=== PATIENT | female | born 1985 | race African-American/Black ===

== ENCOUNTER 2017-04-04 23:18 | Emergency (ER) | payer BC, OTHER ==
[2017-04-04 23:34] VITALS: BP 109/75; PULSE 74; TEMP 98.5; BMI 27.3
== END 2017-04-05 00:16 | disposition left against medical advice (07) ==
LOC: JER 23:18
DX: Z53.21 Procedure and treatment not carried out due to patient leaving prior to being seen by health care provider (principal)
CPT/HCPCS: 99281-25

== ENCOUNTER 2017-04-05 17:52 | Emergency (ER) | payer OTHER ==
[2017-04-05 17:56] VITALS: BMI 29.7
[2017-04-05] MEDS ORDERED: ACETAMINOPHEN 325 MG TABLET (FP) PO ONE (18:21)
--- NOTE | 2017-04-05 18:23 | PDOC ---
History of Present Illness - General History Source: Patient Exam Limitations: No Limitations - History of Present Illness Initial Comments: 04/05/17 18:38 The patient is a year old female with a significant PMH of recurrent lower back pain who presents to the emergency department with left leg heaviness and pain beginning approximately The patient notes that she saw her PCP Dr. Isauro Palomo today who sent her over to rule out DVT in her left leg. The patient denies chest pain, shortness of breath, headache and dizziness. Denies fever, chills, nausea, vomit, diarrhea and constipation. Denies dysuria, frequency, urgency and hematuria. Allergies: NKA Past surgical history: Scoliosis surgery w/ fusion. Social history: Social alcohol use. No reported cigarette or drug use. PCP: Dr. Isauro Palomo <Estrada Sanches - Last Filed: 04/05/17 18:40> - General History Source: Patient Exam Limitations: No Limitations <Estrada Gray - Last Filed: 04/05/17 18:54> <Charlene Taveras - Last Filed: 04/05/17 20:45> - General Chief Complaint: Pain Stated Complaint: PAIN Time Seen by Provider: 04/05/17 18:14 Past History <Estrada Sanches - Last Filed: 04/05/17 18:40> - Past Medical History COPD: No Diabetes: No HTN: No Hypercholesterolemia: No Psychiatric Problems: Yes (anxiety) - Surgical History Orthopedic Surgery: Yes (scoliosis surgery with fusion) - Reproductive History (#): 1 - Suicide/Smoking/Psychosocial Hx Smoking Status: No Smoking History: Never smoked Have you smoked in the past 12 months: No Number of Cigarettes Smoked Daily: 0 Hx Alcohol Use: Yes (SOCIAL) Drug/Substance Use Hx: No Substance Use Type: None <Estrada Gray - Last Filed: 04/05/17 18:54> <Charlene Taveras - Last Filed: 04/05/17 20:45> - Past Medical History Allergies/Adverse Reactions: Allergies Allergy/AdvReac Type Severity Reaction Status Date / Time No Known Allergies Allergy Verified 04/05/17 17:56 Home Medications: Ambulatory Orders Nitrofurantoin Macrocrystal [Nitrofurantoin] 100 mg PO BID #14 capsule 04/05/17 Nitrofurantoin Monohyd/M-Cryst [Macrobid -] 100 mg PO BID #14 capsule 04/05/17 Review of Systems - Review of Systems Able to Perform ROS?: Yes Comments:: 04/05/17 18:38 GENERAL/CONSTITUTIONAL: No fever or chills. No weakness. HEAD, EYES, EARS, NOSE AND THROAT: No change in vision. No ear pain or discharge. No sore throat. CARDIOVASCULAR: No chest pain or shortness of breath. RESPIRATORY: No cough, wheezing, or hemoptysis. GASTROINTESTINAL: No nausea, vomiting, diarrhea or constipation. GENITOURINARY: No dysuria, frequency, or change in urination. MUSCULOSKELETAL: (+) Left leg heaviness and pain. No neck or back pain. SKIN: No rash NEUROLOGIC: No headache, vertigo, loss of consciousness, or change in strength/ sensation. ENDOCRINE: No increased thirst. No abnormal weight change. HEMATOLOGIC/LYMPHATIC: No anemia, easy bleeding, or history of blood clots. ALLERGIC/IMMUNOLOGIC: No hives or skin allergy. <Estrada Sanches - Last Filed: 04/05/17 18:40> *Physical Exam - Vital Signs Last Vital Signs Temp Pulse Resp BP Pulse Ox 98.3 F 71 20 125/67 100 04/05/17 17:53 04/05/17 17:53 04/05/17 17:53 04/05/17 17:53 04/05/17 17:53 - Physical Exam Comments: 04/05/17 18:38 GENERAL: Awake, alert, and fully oriented, in no acute distress HEAD: No signs of trauma EYES: PERRLA, EOMI, sclera anicteric, conjunctiva clear ENT: Auricles normal inspection, hearing grossly normal, nares patent, oropharynx clear without exudates. Moist mucosa NECK: Normal ROM, supple, no lymphadenopathy, JVD, or masses EXTREMITIES: (+) Mild tenderness to left anterior medial thigh. Normal range of motion, no edema. No clubbing or cyanosis. No cords, erythema, or tenderness NEUROLOGICAL: Cranial nerves II through XII grossly intact. Normal speech, normal gait <Estrada Sanches - Last Filed: 04/05/17 18:40> - Vital Signs Last Vital Signs Temp Pulse Resp BP Pulse Ox 98.3 F 71 20 125/67 100 04/05/17 17:53 04/05/17 17:53 04/05/17 17:53 04/05/17 17:53 04/05/17 17:53 <Estrada Gray - Last Filed: 04/05/17 18:54> - Vital Signs Last Vital Signs Temp Pulse Resp BP Pulse Ox 98.3 F 71 20 125/67 100 04/05/17 17:53 04/05/17 17:53 04/05/17 17:53 04/05/17 17:53 04/05/17 17:53 <Charlene Taveras - Last Filed: 04/05/17 20:45> ED Treatment Course - RADIOLOGY Radiology Studies Ordered: Category Date Time Status DUPLEX VASCUL US-1 LEG [US] Stat Ultrasound 04/05/17 18:21 Ordered <Estrada Gray - Last Filed: 04/05/17 18:54> - Medications Given in the ED: ED Medications Discontinued Medications Generic Name Dose Route Start Last Admin Trade Name Freq PRN Reason Stop Dose Admin Acetaminophen 650 mg 04/05/17 18:21 04/05/17 19:46 Tylenol - PO 04/05/17 18:22 650 mg ONCE ONE Administration <Charlene Taveras - Last Filed: 04/05/17 20:45> Medical Decision Making - Medical Decision Making 04/05/17 18:36 A portion of this note was documented by scribe services under my direction. I have reviewed the details of the note, within reason, and agree with the documentation with the following case summary and management plan written by me. Patient treated in the ED. Nursing notes are reviewed and incorporated into the medical decision-making. Vital signs reviewed. Vital Signs Temp Pulse Resp BP Pulse Ox 98.3 F 71 20 125/67 100 04/05/17 17:53 04/05/17 17:53 04/05/17 17:53 04/05/17 17:53 04/05/17 17:53 31-year-old female with no past medical history presents with left leg pain. The patient reports that she's taken oral contraceptive pills. Noted yesterday that that today she was developing heaviness and left thigh pain. Denies chest pain or shortness of breath. Patient called her doctor who then sent the patient ED to rule out DVT. Patient is also endorsing one week of dysuria but denies any fevers or abdominal pain. We'll rule out DVT with a duplex. However, we'll also need to investigate UA for rule out urinary tract infection. 04/05/17 18:54 Patient signed out to Dr. Taveras for further management and disposition. <Estrada Gray - Last Filed: 04/05/17 18:54> - Medical Decision Making 04/05/17 19:50 Patient Name: YAS PADGETT THIS IS A PRELIMINARY REPORT FROM [facility] DATE OF SERVICE: 2017-04-05 19:10:41 IMAGES: 21 EXAM: Venous Doppler imaging of the left lower extremity HISTORY: Left lower extremity pain COMPARISON: None. FINDINGS: Spectral color flow Doppler imaging of the venous system of the left lower extremity is negative for deep venous thrombosis. IMPRESSION: Negative study 04/05/17 20:45 UA shows UTI; I will terat with 7 days of macrobid <Charlene Taveras - Last Filed: 04/05/17 20:45> *DC/Admit/Observation/Transfer - Attestations Scribe Attestion: 04/05/17 18:38 Documentation prepared by Estrada Sanches, acting as medical accountant for Estrada Gray MD. <Estrada Sanches - Last Filed: 04/05/17 18:40> <Estrada Gray - Last Filed: 04/05/17 18:54> - Discharge Dispostion Admit: No <Charlene Taveras - Last Filed: 04/05/17 20:45> Diagnosis at time of Disposition: UTI (urinary tract infection) - Discharge Dispostion Disposition: HOME Condition at time of disposition: Stable - Prescriptions Prescriptions: Nitrofurantoin Macrocrystal [Nitrofurantoin] 100 mg PO BID #14 capsule Nitrofurantoin Monohyd/M-Cryst [Macrobid -] 100 mg PO BID #14 capsule - Referrals Referrals: Isauro Palomo MD [Primary Care Provider] - - Patient Instructions Printed Discharge Instructions: Urinary Tract Infection - Post Discharge Activity
[2017-04-05] MEDS ORDERED: ACETAMINOPHEN 325 MG TABLET (FP) ONE (19:47)
[2017-04-05 20:01] LABS: HCG,QUALITATIVE URINE NEGATIVE; URINE APPEARANCE TURBID; URINE BILIRUBIN NEGATIVE (NEGATIVE); URINE BLOOD 2+ (NEGATIVE); URINE COLOR YELLOW; URINE GLUCOSE (UA) NEGATIVE (NEGATIVE); URINE KETONE NEGATIVE (NEGATIVE); URINE NITRITE POSITIVE (NEGATIVE); URINE UROBILINOGEN NEGATIVE mg/dL (0.2-1.0)
[2017-04-05 20:02] LABS: URINE LEUK ESTERASE 1+ (NEGATIVE); URINE PROTEIN 1+ (NEGATIVE)
[2017-04-05 20:06] LABS: EPI CELLS RARE /HPF (FEW); TRIPLE PHOSPHATE CRYSTAL FEW /hpf (NONE SEEN); URINE BACTERIA FEW /hpf (NONE SEEN); URINE MUCUS MODERATE
[2017-04-05] MEDS ORDERED: NITROFURANTOIN MACROCRYSTAL 50 MG CAPSULE (FP) PO SCH (20:15)
[2017-04-05] MEDS ORDERED: NITROFURANTOIN MACROCRYSTAL 50 MG CAPSULE (FP) ONE (20:25)
[2017-04-05 20:32] VITALS: BP 120/62; PULSE 68; TEMP 98.1
== END 2017-04-05 20:15 | disposition home or self-care (01) ==
LOC: JER 17:52
DX: N39.0 Urinary tract infection, site not specified (principal)
CPT/HCPCS: 81003; 81015; 84703; 87086; 87186; 93971-TC; 99281-25

== ENCOUNTER 2017-08-26 17:15 | Emergency (ER) | payer OTHER ==
[2017-08-26 17:23] VITALS: BP 127/72; PULSE 75; TEMP 98.7; BMI 29.4
--- NOTE | 2017-08-26 17:28 | PDOC ---
Rapid Medical Evaluation Time Seen by Provider: 08/26/17 17:19 Medical Evaluation: Allergies Allergy/AdvReac Type Severity Reaction Status Date / Time No Known Allergies Allergy Verified 04/05/17 17:56 08/26/17 17:20 Dizziness, shortness of breath and chest pain for two days. Hx of panic attacks. Exam: AAOx3, breathing easily. CTAB Orders. EKG, CBC, CMP, CXR, trop Pt. to proceed to ED for further evaluation
--- NOTE | 2017-08-26 18:04 | PDOC ---
History of Present Illness - General Chief Complaint: Chest Pain Stated Complaint: S.O.B/ CHEST PAIN Time Seen by Provider: 08/26/17 17:19 - History of Present Illness Initial Comments: 08/26/17 18:01 32 yo F with h/o anxiety disorder who p/w SOB. Patient with acute episode of SOB ( 20 minutes) while in grocery store this evening. Also reports episode of lightheadedness, and chest "discomfort/pressure." Reports similar episode yesterday evening after getting out of shower, but associated with L hand tingling, with spontaneous resolution. No identifiable triggers or alleviators. States that symptoms are different from previous panic attacks. Denies F/C, N/V, wheezing, diaphoresis, palpitations, orthopnea, PND, leg swelling/pain, cough, hemoptysis, abdominal pain, diarrhea, constipation, urinary complaints, weakness. PMHx: as noted above. Denies h/o ACS/AK, stent placement, holter monitor testing , or stress testing. Denies h/o PE/DVT, surgery or trauma within 6 weeks, or h/ o malignancy. Started on OCP within past week. FHx: Denies h/o sudden cardiac . ROS: as noted above SHx: Denies tobacco, or IVDA. Intermittent Etoh. Denies recent travel or prolonged immobilization. Past History - Past Medical History Allergies/Adverse Reactions: Allergies Allergy/AdvReac Type Severity Reaction Status Date / Time No Known Allergies Allergy Verified 04/05/17 17:56 Home Medications: Ambulatory Orders Norethindrone AC-Eth Estradiol [Junel] 1 each PO DAILY 08/26/17 COPD: No Diabetes: No HTN: No Hypercholesterolemia: No Psychiatric Problems: Yes (anxiety) - Surgical History Orthopedic Surgery: Yes (scoliosis surgery with fusion) - Reproductive History (#): 1 - Suicide/Smoking/Psychosocial Hx Smoking Status: No Smoking History: Never smoked Have you smoked in the past 12 months: No Number of Cigarettes Smoked Daily: 0 Information on smoking cessation initiated: No Hx Alcohol Use: No Drug/Substance Use Hx: No Substance Use Type: None Review of Systems - Review of Systems Comments:: 08/26/17 18:01 GENERAL/CONSTITUTIONAL: No fever or chills. No weakness. HEAD, EYES, EARS, NOSE AND THROAT: No change in vision. No ear pain or discharge. No sore throat. CARDIOVASCULAR: + chest pain and shortness of breath RESPIRATORY: +SOB. No cough, wheezing, or hemoptysis. GASTROINTESTINAL: No nausea, vomiting, diarrhea or constipation. GENITOURINARY: No dysuria, frequency, or change in urination. MUSCULOSKELETAL: No joint or muscle swelling or pain. No neck or back pain. SKIN: No rash NEUROLOGIC: No headache, vertigo, loss of consciousness, or change in strength/ sensation. ENDOCRINE: No increased thirst. No abnormal weight change HEMATOLOGIC/LYMPHATIC: No anemia, easy bleeding, or history of blood clots. ALLERGIC/IMMUNOLOGIC: No hives or skin allergy. *Physical Exam - Vital Signs Last Vital Signs Temp Pulse Resp BP Pulse Ox 98.7 F 75 17 127/72 100 08/26/17 17:20 08/26/17 17:20 08/26/17 17:20 08/26/17 17:20 08/26/17 17:20 - Physical Exam Comments: 08/26/17 18:01 GENERAL: Awake, alert, and fully oriented, in no acute distress HEAD: No signs of trauma, normocephalic, atraumatic EYES: PERRLA, EOMI, sclera anicteric, conjunctiva clear ENT: Hearing grossly normal, nares patent, oropharynx clear without exudates. Moist mucosa NECK: Normal ROM, supple, no lymphadenopathy, JVD, or masses LUNGS: No distress, speaks full sentences, clear to auscultation bilaterally HEART: Regular rate and rhythm, normal S1 and S2, no murmurs, rubs or gallops, peripheral pulses normal and equal bilaterally. EXTREMITIES : Normal inspection, Normal range of motion, no edema. No clubbing or cyanosis. NEUROLOGICAL: Cranial nerves II through XII grossly intact. Normal speech, normal gait, no focal sensorimotor deficits SKIN: Warm, Dry, normal turgor, no rashes or lesions noted Moderate Sedation - Procedure Monitoring Vital Signs: Vital Signs Temp Pulse Resp BP Pulse Ox 98.7 F 75 17 127/72 100 08/26/17 17:20 08/26/17 17:20 08/26/17 17:20 08/26/17 17:20 08/26/17 17:20 ED Treatment Course - LABORATORY CBC & Chemistry Diagram: 08/26/17 17:49 08/26/17 17:49 - ADDITIONAL ORDERS Additional order review: 08/26/17 17:49 RBC 4.51 MCV 86.2 MCHC 31.7 L RDW 14.5 MPV 9.5 Neutrophils % 54.2 Lymphocytes % 34.8 D Monocytes % 5.7 Eosinophils % 5.1 H D Basophils % 0.2 Medical Decision Making - Medical Decision Making 08/26/17 18:02 32 yo F with h/o anxiety disorder who p/w acute SOB, chest pressure, and lightheadedness. VSS, AF. PERC POS for OCP use. Low risk Weils criteria for PE. R/o cardiac dysarrythmia vs. cardiac dz. Will assess for anemia, electrolyte abnml, toxic or metabolic derangements,acid-base disturbances, or underlying infection. Will also consider anxiety or somatiform related disorder, thyroid dysfunction. ED Course: CBC,CMP, BHCG, PT/INR, Cardiac, TSH EKG, CXR 08/26/17 18:36 EKG: NSR with absent REBEKA, STD, or TWI. Nml interval duration and axis. CBC,CMP: Unremarkable UA: Neg stable for d/c with return precautions. Advised to f/u with PMD. *DC/Admit/Observation/Transfer Diagnosis at time of Disposition: Shortness of breath Chest pain Qualifiers: Chest pain type: unspecified Qualified Code(s): R07.9 - Chest pain, unspecified - Discharge Dispostion Disposition: HOME Condition at time of disposition: Stable Decision to Admit order: No - Referrals Referrals: Carter Cottrell MD [Staff Physician] - - Patient Instructions Printed Discharge Instructions: DI for Chest Pain Additional Instructions: Please follow up with your primary care physician in 2-3 days. Please return to the ER if you have any signs or symptoms of chest pain, shortness of breath, uncontrollable fever, chills, nausea, vomiting, numbness, tingling, or weakness in any part of your body, changes in vision, or slurred speech. Please return to the ER if symptoms persist, worsen, or new symptoms arise. - Post Discharge Activity - Attestations Physician Attestion: 08/26/17 18:02 I attest to the information provided in this note.
--- NOTE | 2017-08-26 18:26 | PDOC ---
Attending Attestation - Resident Resident Name: Mehdi Medina - ED Attending Attestation I have performed the following: I have examined & evaluated the patient, The case was reviewed & discussed with the resident, I agree w/resident's findings & plan, Exceptions are as noted - HPI HPI: 08/26/17 18:25 32y F hx of anxiety presents with complaint of sob, associated with lightheaded ness and tingling in her left hand started last night while getitng out of the shower, lasting approx 30min-1hr. pt endorsed recurrent symptoms while she was at the grocery store that has since resolved. no associated chest pain, hemoptysis, headache, vision cahnges, abd pain, dysuria, diarrhea, back pain. Pt currently asymptomatic. pt notes hx of panic attacks but notes she usually doesnt feel lightheaded. pts exam unremarkable with clear lungs, cardiac exam rrr, abd soft nontender recently started on ocp, but sypmtoms highly atypical of PE, low risk wells suspect anxiety will obtain blood work to r/o anemia,metabolic derangement ekg to screen for arrythmia - Physicial Exam PE: 08/29/17 09:20 see above - Medical Decision Making pt awaiting lab work, signed out to evening team to fu with lab work and anticipate dc with pmd fu Heart Score/ECG Review - ECG Impressions Comment:: 08/26/17 18:45 Twelve-lead EKG was performed and reviewed by me. There is normal sinus rhythm with a normal rate. Rate of 78 The axis is normal. The intervals are normal. There is normal R wave progression There are no ST or T wave abnormalities. Impression: Normal twelve-lead EKG
[2017-08-26 19:03] LABS: INR 1.11 (0.82-1.09); PROTHROMBIN TIME (PATIENT) 12.5 SEC (9.7-13.0)
[2017-08-26 19:12] LABS: URINE APPEARANCE SLCLOUDY; URINE BILIRUBIN NEGATIVE (<2.0 mg/dL); URINE COLOR STRAW; URINE GLUCOSE (UA) NEGATIVE (NEGATIVE); URINE KETONE NEGATIVE (NEGATIVE); URINE LEUK ESTERASE NEGATIVE (NEGATIVE); URINE NITRITE NEGATIVE (NEGATIVE); URINE PROTEIN NEGATIVE (NEGATIVE); URINE UROBILINOGEN NEGATIVE mg/dL (0.2-1.0)
[2017-08-26 19:16] LABS: HCG,QUALITATIVE URINE NEGATIVE
[2017-08-26 19:19] LABS: ALBUMIN 3.8 g/dl (3.4-5.0); ALK PHOS 48 U/L (45-117); ANION GAP 9 (8-16); BILIRUBIN,TOTAL 0.2 mg/dL (0.2-1.0); BLOOD UREA NITROGEN 8 mg/dL (7-18); CALCIUM 8.5 mg/dL (8.5-10.1); CHLORIDE 105 mmol/L (98-107); CO2 26 mmol/L (21-32); CREATININE 0.6 mg/dL (0.55-1.02); GLUCOSE,RANDOM 102 mg/dL (74-106); POTASSIUM 3.9 mmol/L (3.5-5.1); SGOT/AST 18 U/L (15-37); SGPT/ALT 17 U/L (12-78); SODIUM 140 mmol/L (136-145); TOT PROT 7.5 g/dl (6.4-8.2)
[2017-08-26 19:24] LABS: EPI CELLS FEW /HPF (FEW); URINE BACTERIA FEW /hpf (NONE SEEN)
--- NOTE | 2017-08-26 19:50 | PDOC ---
*Physical Exam - Vital Signs Last Vital Signs Temp Pulse Resp BP Pulse Ox 98.7 F 75 17 127/72 100 08/26/17 17:20 08/26/17 17:20 08/26/17 17:20 08/26/17 17:20 08/26/17 17:20 ED Treatment Course - LABORATORY CBC & Chemistry Diagram: 08/26/17 17:49 08/26/17 17:49 - ADDITIONAL ORDERS Additional order review: Laboratory Results 08/26/17 08/26/17 08/26/17 18:21 17:54 17:49 PT with INR INR Sodium 140 Potassium 3.9 Chloride 105 Carbon Dioxide 26 Anion Gap 9 BUN 8 Creatinine 0.6 Creat Clearance w eGFR > 60 Random Glucose 102 Calcium 8.5 Total Bilirubin 0.2 D AST 18 ALT 17 Alkaline Phosphatase 48 Total Protein 7.5 Albumin 3.8 TSH 0.74 Urine Color Straw Urine Appearance Slcloudy Urine pH 7.0 Ur Specific [place] 1.004 Urine Protein Negative Urine Glucose (UA) Negative Urine Ketones Negative Urine Blood 1+ H Urine Nitrite Negative Urine Bilirubin Negative Urine Urobilinogen Negative Ur Leukocyte Esterase Negative Urine WBC (Auto) 5 Urine RBC (Auto) 1 Ur Epithelial Cells Few Urine Bacteria Few Urine HCG, Qual Negative 08/26/17 17:49 PT with INR 12.50 INR 1.11 Sodium Potassium Chloride Carbon Dioxide Anion Gap BUN Creatinine Creat Clearance w eGFR Random Glucose Calcium Total Bilirubin AST ALT Alkaline Phosphatase Total Protein Albumin TSH Urine Color Urine Appearance Urine pH Ur Specific [place] Urine Protein Urine Glucose (UA) Urine Ketones Urine Blood Urine Nitrite Urine Bilirubin Urine Urobilinogen Ur Leukocyte Esterase Urine WBC (Auto) Urine RBC (Auto) Ur Epithelial Cells Urine Bacteria Urine HCG, Qual Medical Decision Making - Medical Decision Making 08/26/17 19:49 The patient was signed out to me by Dr. Medina, day team. The patient is a 32F with no PMH presenting with lightheadedness. EKG and labs WNL. Pending CXR. Likely dispo: home with PCP f/u. 08/26/17 19:53 CXR clear, pending CBC and d/c home. 08/26/17 20:26 XR negative. CBC negative. Will d/c home with PCP f/u. *DC/Admit/Observation/Transfer Diagnosis at time of Disposition: Shortness of breath Chest pain Qualifiers: Chest pain type: unspecified Qualified Code(s): R07.9 - Chest pain, unspecified - Discharge Dispostion Disposition: HOME Condition at time of disposition: Stable Decision to Admit order: No - Referrals Referrals: Carter Cottrell MD [Staff Physician] - - Patient Instructions Printed Discharge Instructions: DI for Chest Pain Additional Instructions: Please follow up with your primary care physician in 2-3 days. Please return to the ER if you have any signs or symptoms of chest pain, shortness of breath, uncontrollable fever, chills, nausea, vomiting, numbness, tingling, or weakness in any part of your body, changes in vision, or slurred speech. Please return to the ER if symptoms persist, worsen, or new symptoms arise. - Post Discharge Activity
[2017-08-26 19:53] LABS: BASO % 0.2 % (0-2.0); EOS % 5.1 % (0-4.5); HEMATOCRIT 38.9 % (32.4-45.2); HEMOGLOBIN 12.3 GM/dL (10.7-15.3); LYMPH % 34.8 % (8-40); MCH 27.3 pg (25.7-33.7); MCHC 31.7 g/dl (32.0-36.0); MEAN CELL VOLUME 86.2 fl (80-96); MEAN PLT VOLUME 9.5 fl (7.5-11.1); MONO % 5.7 % (3.8-10.2); NEUT % 54.2 % (42.8-82.8); PLATELET COUNT 233 K/MM3 (134-434); RBC 4.51 M/mm3 (3.60-5.2); RDW 14.5 % (11.6-15.6); WHITE BLOOD COUNT 5.2 K/mm3 (4.0-10.0)
--- NOTE | 2017-08-27 10:27 | EKG ---
Test Reason : Blood Pressure : / mmHG Vent. Rate : 078 BPM Atrial Rate : 078 BPM P-R Int : 146 ms QRS Dur : 094 ms QT Int : 396 ms P-R-T Axes : 034 054 049 degrees QTc Int : 451 ms NORMAL SINUS RHYTHM NORMAL ECG WHEN COMPARED WITH ECG OF 22-SEP-2015 05:31, NONSPECIFIC T WAVE ABNORMALITY, WORSE IN ANTERIOR LEADS Confirmed by FRANCO YEBOAH, CHIQUITA ([id number]) on 08/27/2017 10:26:59 AM Referred By: Confirmed By:CHIQUITA GAMEZ MD
== END 2017-08-26 20:44 | disposition home or self-care (01) ==
LOC: JER 17:15
DX: R07.89 Other chest pain (principal); R06.02 Shortness of breath; F41.9 Anxiety disorder, unspecified
CPT/HCPCS: 36415; 71046-TC-FY; 80053; 81003; 81015; 82550; 82553; 84443; 84484; 84703; 85025; 85610; 93005; 93010; 99283-25

== ENCOUNTER 2018-10-29 11:12 | Emergency (ER) | payer OTHER ==
[2018-10-29 11:31] VITALS: TEMP 98.5; BMI 29.0
[2018-10-29 12:10] VITALS: BP 110/72; PULSE 84
--- NOTE | 2018-10-29 13:03 | PDOC ---
History of Present Illness - General Chief Complaint: Lightheaded Stated Complaint: Lightheaded Time Seen by Provider: 10/29/18 12:25 History Source: Patient Exam Limitations: No Limitations Past History - Past Medical History Allergies/Adverse Reactions: Allergies Allergy/AdvReac Type Severity Reaction Status Date / Time No Known Allergies Allergy Verified 04/05/17 17:56 Home Medications: Ambulatory Orders Norethindrone AC-Eth Estradiol [Junel] 1 each PO DAILY 08/26/17 COPD: No Diabetes: No HTN: No Hypercholesterolemia: No Psychiatric Problems: Yes (anxiety) - Surgical History Orthopedic Surgery: Yes (scoliosis surgery with fusion) - Reproductive History (#): 1 - Immunization History Immunization Up to Date: No - Suicide/Smoking/Psychosocial Hx Smoking Status: No Smoking History: Never smoked Have you smoked in the past 12 months: No Number of Cigarettes Smoked Daily: 0 Information on smoking cessation initiated: No Hx Alcohol Use: No Drug/Substance Use Hx: No Substance Use Type: None *Physical Exam - Vital Signs Last Vital Signs Temp Pulse Resp BP Pulse Ox 98.5 F 85 18 135/54 L 100 10/29/18 11:29 10/29/18 11:29 10/29/18 11:29 10/29/18 11:29 10/29/18 11:29 - Physical Exam General Appearance: No: Apparent Distress HEENT: positive: EOMI, RAMIRO Respiratory/Chest: positive: Lungs Clear, Normal Breath Sounds. negative: Respiratory Distress Cardiovascular: positive: Regular Rhythm, Regular Rate, S1, S2. negative: Murmur Gastrointestinal/Abdominal: positive: Normal Bowel Sounds, Soft. 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 Denies having this problem in the past. Denies fever, URI sxs, sob, cp, abd pain, vomiting, urinary complaints, headache , changes in vision/gait, numbness/tingling, weakness of extremities. LNMP October 07. Consider anemia, electrolyte abnormalities, possible Plan: Labs, UCG 10/29/18 13:00 Labs unremarkable Patient not Patient given copy of lab results advised f/u PCP 10/29/18 13:55 *DC/Admit/Observation/Transfer Diagnosis at time of Disposition: Lightheaded - Discharge Dispostion Disposition: HOME Condition at time of disposition: Stable Decision to Admit order: No - Referrals Referrals: Lukasz Shabazz MD [Primary Care Provider] - 2 Days - Patient Instructions Printed Discharge Instructions: DI for Dizziness-Nonvertigo Additional Instructions: Thank you for choosing [facility]. It was a pleasure taking care of you. Your blood work was unremarkable here Please follow-up with your regular doctor in 2 days for further evaluation Return to the Emergency Department if your symptoms worsen or persist, you have fever, shortness of breath, chest pain, severe abdominal pain, vomiting, weakness of extremities (arms and/or legs), changes in vision or walking or other concerning symptoms. - Post Discharge Activity
[2018-10-29 13:11] LABS: BASO % 0.1 % (0-2.0); EOS % 3.2 % (0-4.5); HEMATOCRIT 37.9 % (32.4-45.2); HEMOGLOBIN 12.3 GM/dL (10.7-15.3); LYMPH % 27.3 % (8-40); MCH 27.4 pg (25.7-33.7); MCHC 32.3 g/dl (32.0-36.0); MEAN CELL VOLUME 84.8 fl (80-96); MEAN PLT VOLUME 9.1 fl (7.5-11.1); MONO % 4.2 % (3.8-10.2); NEUT % 65.2 % (42.8-82.8); PLATELET COUNT 217 K/MM3 (134-434); RBC 4.47 M/mm3 (3.60-5.2); RDW 14.3 % (11.6-15.6); WHITE BLOOD COUNT 5.4 K/mm3 (4.0-10.0)
[2018-10-29 13:42] LABS: ALBUMIN 3.7 g/dl (3.4-5.0); BILIRUBIN,TOTAL 0.4 mg/dL (0.2-1); BLOOD UREA NITROGEN 8.8 mg/dL (7-18); CALCIUM 9.3 mg/dL (8.5-10.1); CREATININE 0.7 mg/dL (0.55-1.3); POTASSIUM 3.9 mmol/L (3.5-5.1); TOT PROT 7.4 g/dl (6.4-8.2)
== END 2018-10-29 14:18 | disposition home or self-care (01) ==
LOC: JER 11:12
DX: R42 Dizziness and giddiness (principal)
CPT/HCPCS: 36415; 80053; 84703; 85025; 99282-25

== ENCOUNTER 2019-03-26 10:55 | Emergency (ER) | payer OTHER ==
[2019-03-26 11:03] VITALS: BP 113/74; PULSE 88; BMI 28.1
--- NOTE | 2019-03-26 11:42 | PDOC ---
History of Present Illness - General Chief Complaint: Palpitations Stated Complaint: Palpitations Time Seen by Provider: 03/26/19 11:20 - History of Present Illness Initial Comments: 03/26/19 11:28 33 F with no PMH presents to ED with intermittent palpitations. Pt states that for several weeks, she has been having episodes of chest "fluttering". She feels like her heart is racing or skipping beats. These episodes last only a few minutes at a time and resolve spontaneously. Pt denies ever having CP/SOB. Denies lightheadedness/syncope. Pt states that she sometimes gets these episodes after drinking alcohol but knows of no other trigger. Currently denies any symptoms. Denies leg swelling. Past History - Past Medical History Allergies/Adverse Reactions: Allergies Allergy/AdvReac Type Severity Reaction Status Date / Time No Known Allergies Allergy Verified 03/26/19 11:01 Home Medications: Ambulatory Orders Norethindrone AC-Eth Estradiol [Junel] 1 each PO DAILY 08/26/17 COPD: No Diabetes: No HTN: No Hypercholesterolemia: No Psychiatric Problems: Yes (anxiety) - Surgical History Orthopedic Surgery: Yes (scoliosis surgery with fusion) - Reproductive History (#): 1 - Immunization History Immunization Up to Date: No - Psycho Social/Smoking Cessation Hx Smoking Status: No Smoking History: Never smoked Have you smoked in the past 12 months: No Number of Cigarettes Smoked Daily: 0 Hx Alcohol Use: No Drug/Substance Use Hx: No Substance Use Type: None Review of Systems - Review of Systems Comments:: 03/26/19 11:42 "GENERAL/CONSTITUTIONAL: No fever or chills. No weakness. HEAD, EYES, EARS, NOSE AND THROAT: No change in vision. No ear pain or discharge. No sore throat. CARDIOVASCULAR: + palpitations, No chest pain, no shortness of breath, no loss of consciousness RESPIRATORY: No cough, wheezing, or hemoptysis. GASTROINTESTINAL: No nausea, vomiting, diarrhea or constipation. GENITOURINARY: No dysuria, frequency, or change in urination. MUSCULOSKELETAL: No joint or muscle swelling or pain. No neck or back pain. SKIN: No rash NEUROLOGIC: No vertigo, no change in strength/sensation. ENDOCRINE: No increased thirst. No abnormal weight change. HEMATOLOGIC/LYMPHATIC: No anemia, easy bleeding, or history of blood clots. ALLERGIC/IMMUNOLOGIC: No hives or skin allergy. *Physical Exam - Vital Signs Last Vital Signs Temp Pulse Resp BP Pulse Ox 88 18 113/74 100 03/26/19 11:01 03/26/19 11:01 03/26/19 11:01 03/26/19 11:01 - Physical Exam 03/26/19 11:42 "GENERAL: Awake, alert, and fully oriented, in no acute distress. HEAD: No signs of trauma EYES: PERRLA, EOMI, sclera anicteric, conjunctiva clear ENT: Auricles normal inspection, hearing grossly normal, nares patent, oropharynx clear without exudates. Moist mucosa NECK: Nontender, no stepoffs, Normal ROM, supple, no lymphadenopathy, JVD, or masses LUNGS: Breath sounds equal, clear to auscultation bilaterally. No wheezes, and no crackles HEART: Regular rate and rhythm, normal S1 and S2, no murmurs, rubs or gallops ABDOMEN: Soft, nontender, normoactive bowel sounds. No guarding, no rebound. No masses EXTREMITIES: Normal range of motion, no edema. No clubbing or cyanosis. No cords, erythema, or tenderness NEUROLOGICAL: Cranial nerves II through XII intact. 5/5 strength and sensation in all extremities, Normal speech, normal gait, normal cerebellar function SKIN: Warm, Dry, normal turgor, no rashes or lesions noted. Heart Score/ECG Review - ECG Impressions Comment:: 03/26/19 11:53 NSR, no REBEKA/STDs, no TWIs, axis wnl, intervals wnl, rate 88 ED Treatment Course - LABORATORY CBC & Chemistry Diagram: 03/26/19 11:35 03/26/19 11:35 Medical Decision Making - Medical Decision Making 03/26/19 11:55 33 F with intermittent palpitations x several weeks. Asymptomatic at time of ED eval. EKG wnl, normal sinus. Possible anxiety component. Will check labs and TSH. - Labs Labs wnl. Pt is well appearing, with normal vitals. Clinically stable for DC at this time. I discussed the physical exam findings, ancillary test results and final diagnoses with the patient. I answered all of the patient's questions. The patient was satisfied with the care received and felt comfortable with the discharge plan and treatment plan. The patient agrees to follow up with the primary care physician within 24-72 hours. Discharge - Discharge Information Problems reviewed: Yes Clinical Impression/Diagnosis: Palpitations Disposition: HOME - Follow up/Referral Referrals: Lukasz Shabazz MD [Primary Care Provider] - - Patient Discharge Instructions Patient Printed Discharge Instructions: DI for Palpitations Additional Instructions: Please follow up with your primary care doctor within 1 week for further evaluation of your palpitations. You may need something called a "holter monitor". Avoid caffeine or alcohol, as these may be triggers for your palpitations. If you experience persistent palpitations, chest pain, shortness of breath, lightheadedness, or any other concerning symptoms, return to the ER immediately. - Post Discharge Activity
[2019-03-26 12:07] LABS: BASO % 0.3 % (0-2.0); HEMATOCRIT 38.4 % (32.4-45.2); HEMOGLOBIN 12.2 GM/dL (10.7-15.3); LYMPH % 35.4 % (8-40); MCH 27.2 pg (25.7-33.7); MCHC 31.9 g/dl (32.0-36.0); MEAN CELL VOLUME 85.5 fl (80-96); MEAN PLT VOLUME 8.8 fl (7.5-11.1); MONO % 5.2 % (3.8-10.2); NEUT % 52.1 % (42.8-82.8); PLATELET COUNT 250 K/MM3 (134-434); RBC 4.49 M/mm3 (3.60-5.2); RDW 14.1 % (11.6-15.6); WHITE BLOOD COUNT 6.3 K/mm3 (4.0-10.0)
[2019-03-26 12:26] LABS: ALBUMIN 3.7 g/dl (3.4-5.0); ALK PHOS 45 U/L (45-117); ANION GAP 7 MMOL/L (8-16); BILIRUBIN,TOTAL 0.4 mg/dL (0.2-1); CALCIUM 9.4 mg/dL (8.5-10.1); CHLORIDE 107 mmol/L (98-107); CO2 26 mmol/L (21-32); CREATININE 0.8 mg/dL (0.55-1.3); GLUCOSE,RANDOM 71 mg/dL (74-106); POTASSIUM 4.2 mmol/L (3.5-5.1); SGOT/AST 15 U/L (15-37); SGPT/ALT 17 U/L (13-61); SODIUM 140 mmol/L (136-145); TOT PROT 7.6 g/dl (6.4-8.2)
--- NOTE | 2019-03-27 14:28 | EKG ---
Test Reason : Blood Pressure : / mmHG Vent. Rate : 088 BPM Atrial Rate : 088 BPM P-R Int : 132 ms QRS Dur : 088 ms QT Int : 380 ms P-R-T Axes : 034 045 029 degrees QTc Int : 459 ms NORMAL SINUS RHYTHM NORMAL ECG WHEN COMPARED WITH ECG OF 26-AUG-2017 17:24, NO SIGNIFICANT CHANGE WAS FOUND Confirmed by CHIP BAZAN MD ([id number]) on 03/27/2019 2:28:45 PM Referred By: Confirmed By:CHIP BAZAN MD
== END 2019-03-26 13:11 | disposition home or self-care (01) ==
LOC: JER 10:55
DX: R00.2 Palpitations (principal); F41.9 Anxiety disorder, unspecified; Z98.1 Arthrodesis status
CPT/HCPCS: 36415; 80053; 82550; 82553; 84443; 84484; 84703; 85025; 93005; 93010; 99283-25

== ENCOUNTER 2019-12-26 21:43 | Emergency (ER) | payer OTHER ==
[2019-12-26 22:00] VITALS: BP 117/80; PULSE 74; TEMP 98.6; BMI 29.0
--- OUTSIDE RECORDS SUMMARY | 2019-12-26 22:03 | XMS ---
:1985 Author Organization [facility] Support Name Relationship Address Phone JASMINE Unavailable Unavailable Unavailable SHANNON MAHMOOD MOTHER [address] [place] [address] UE Unavailable Unavailable Unavailable NORBERTO WHITE [address] [phone] [place] [address] LORIN MAHMOOD MOTHER [address] [place] [address] Re-disclosure Warning The records that you are about to access may contain information from federally- assisted alcohol or drug abuse programs. If such information is present, then the following federally mandated warning applies: This information has been disclosed to you from records protected by federal confidentiality rules (42 CFR part 2). The federal rules prohibit you from making any further disclosure of this information unless further disclosure is expressly permitted by the written consent of the person to whom it pertains or as otherwise permitted by 42 CFR part 2. A general authorization for the release of medical or other information is NOT sufficient for this purpose. The Federal rules restrict any use of the information to criminally investigate or prosecute any alcohol or drug abuse patient.The records that you are about to access may contain highly sensitive health information, the redisclosure of which is protected by Article 27-F of the [facility] Public Health law. If you continue you may haveaccess to information: Regarding HIV / AIDS; Provided by facilities licensed or operated by the [facility] Office of Mental Health; or Provided by the [facility] Office for People With Developmental Disabilities. If such information is present, then the following [facility] mandated warning applies: This information has been disclosed to you from confidential records which are protected by state law. State law prohibits you from making any further disclosure of this information without the specific written consent of the person to whom it pertains, or as otherwise permitted by law. Any unauthorized further disclosure in violation of state law may result in a fine or intermediate sentence or both. A general authorization for the release of medical or other information is NOT sufficient authorization for further disclosure. Insurance Providers Payer name Policy type Policy ID Covered Covered libertarian's Policy P emily / Coverage libertarian ID relationship to [place] [employer] ormation type benson [facility] [id number] MEDICAID COMM PLAN Results ID Date Data Source [id number] 08/11/2019 12:00:00 AM EDT [place] Name Value Range Interpretation Description Data Sup porting Code Source(s) Document(s ) SARS [facility] Coronavirus 2 This lab was ordered by ELO ROMO and reported by [facility]. Procedure
--- NOTE | 2019-12-26 23:04 | PDOC ---
History of Present Illness - General Chief Complaint: Pain Stated Complaint: PAIN Time Seen by Provider: 12/26/19 22:23 - History of Present Illness Initial Comments: 12/26/19 23:10 34yo F w/ h/o chronic UTIs presents w/ 1 episode of R flank pain that is now 95- 100% resolved. She reports that days ago she had dysuria and cloudy urine. She started on cipro per PCP and took three days of it. She felt better and stopped taking it. She did not finish her course. The past few days she has been feeling some epigastric pain but it had been mild. She is here for one episode of R flank pain. no hematuria, dysuria, discharge, n/v/d, she has been passing gas and having BMs. no h/o stones or Kidney disease. Past History - Medical History Allergies/Adverse Reactions: Allergies Allergy/AdvReac Type Severity Reaction Status Date / Time No Known Allergies Allergy Verified 03/26/19 11:01 Home Medications: Ambulatory Orders Norethindrone AC-Eth Estradiol [Junel] 1 each PO DAILY 08/26/17 COPD: No Diabetes: No HTN: No Hypercholesterolemia: No Psychiatric Problems: Yes (anxiety) - Surgical History Orthopedic Surgery: Yes (scoliosis surgery with fusion) - Reproductive History Is Patient Now?: No (#): 1 - Immunization History Immunization Up to Date: No - Psycho-Social/Smoking History Smoking Status: No Smoking History: Never smoked Have you smoked in the past 12 months: No Number of Cigarettes Smoked Daily: 0 - Substance Abuse Hx (Audit-C & DAST Scrn) How often the patient has a drink containing alcohol: Never Score: In Men: 4 or > Positive; In Women: 3 or > Positive: 0 Screen Result (Pos requires Nsg. Audit-10AR): Negative Review of Systems - Review of Systems Able to Perform ROS?: Yes Is the patient limited Malawian proficient: No Constitutional: No: Chills, Diaphoresis, Fever HEENTM: No: Symptoms Reported Respiratory: No: Symptoms reported Cardiac (ROS): No: Symptoms Reported ABD/GI: Yes: Constipated, Abdominal cramping. No: Abdominal Distended, Abd. Pain w/ defecation, Blood Streaked Bowels, Diarrhea, Difficulty Swallowing, Vomiting : No: Burning, Dysuria, Discharge, Hematuria Musculoskeletal: No: Back Pain Integumentary: No: Erythema, Rash Neurological: No: Symptoms reported Endocrine: No: Symptoms Reported Hematologic/Lymphatic: No: Symptoms Reported All Other Systems: Reviewed and Negative *Physical Exam - Vital Signs Last Vital Signs Temp Pulse Resp BP Pulse Ox 98.6 F 74 20 117/80 97 12/26/19 21:51 12/26/19 21:51 12/26/19 21:51 12/26/19 21:51 12/26/19 21:51 - Physical Exam General Appearance: Yes: Nourished, Appropriately Dressed. No: Apparent Distress HEENT: positive: EOMI, Normal Voice Neck: positive: Trachea midline, Supple. negative: Tender Respiratory/Chest: positive: Lungs Clear, Normal Breath Sounds. negative: Chest Tender, Respiratory Distress Cardiovascular: positive: Regular Rhythm, Regular Rate, S1, S2. negative: Bradycardia, Tachycardia Gastrointestinal/Abdominal: positive: Soft, Increased Bowel Sounds. negative: Normal Bowel Sounds, Tender, Flat Musculoskeletal: positive: Normal Inspection. negative: CVA Tenderness Extremity: positive: Normal Capillary Refill, Normal Inspection, Normal Range of Motion Integumentary: positive: Normal Color, Dry, Warm Neurologic: positive: Fully Oriented, Alert, Normal Response ED Treatment Course - LABORATORY CBC & Chemistry Diagram: 12/26/19 23:00 12/26/19 23:00 Medical Decision Making - Medical Decision Making 12/26/19 23:33 CBC, CMP, UA, Upreg -> all normal -> DC 12/29/19 11:42 Discharge - Discharge Information Problems reviewed: Yes Clinical Impression/Diagnosis: Abdominal pain Qualifiers: Abdominal location: unspecified location Qualified Code(s): R10.9 - Unspecified abdominal pain Condition: Stable Disposition: HOME - Admission No - Follow up/Referral Referrals: Connie Shore MD [Primary Care Provider] - - Patient Discharge Instructions Patient Printed Discharge Instructions: DI for Acute Abdominal Pain Additional Instructions: You came to the ED w/ ABD pain. We evaluated you and tested your blood and urine. Your results are normal, and you are cleared for discharge. Please follow up with your primary doctor within 48 hours of leaving the ED and come back with any worsening symptoms. - Post Discharge Activity
[2019-12-26 23:19] LABS: BASO % 0.2 % (0-2.0); EOS % 3.7 % (0-4.5); HEMATOCRIT 39.7 % (32.4-45.2); HEMOGLOBIN 12.9 GM/dL (10.7-15.3); LYMPH % 26.6 % (8-40); MCH 27.8 pg (25.7-33.7); MCHC 32.4 g/dl (32.0-36.0); MEAN CELL VOLUME 85.7 fl (80-96); MEAN PLT VOLUME 8.9 fl (7.5-11.1); MONO % 4.6 % (3.8-10.2); NEUT % 64.9 % (42.8-82.8); PLATELET COUNT 249 K/MM3 (134-434); RBC 4.64 M/mm3 (3.60-5.2); RDW 14.2 % (11.6-15.6)
[2019-12-26 23:21] LABS: URINE APPEARANCE CLOUDY; URINE BILIRUBIN NEGATIVE (NEGATIVE); URINE COLOR YELLOW; URINE GLUCOSE (UA) NEGATIVE (NEGATIVE); URINE KETONE NEGATIVE (NEGATIVE); URINE LEUK ESTERASE NEGATIVE (NEGATIVE); URINE NITRITE NEGATIVE (NEGATIVE); URINE PROTEIN NEGATIVE (NEGATIVE)
--- NOTE | 2019-12-26 23:30 | PDOC ---
Documentation entered by Yamilka Tyler SCRIBE, acting as scribe for Jyoti Hsu MD. Jyoti Hsu MD: This documentation has been prepared by the Qi palacios Sydney, SCRIBE, under my direction and personally reviewed by me in its entirety. I confirm that the documentation accurately reflects all work, treatment, procedures, and medical decision making performed by me. Attending Attestation - Resident Resident Name: Anthony Marcial - ED Attending Attestation I have performed the following: I have examined & evaluated the patient, The case was reviewed & discussed with the resident, I agree w/resident's findings & plan, Exceptions are as noted - HPI HPI: 12/26/19 23:47 this 34 yo female has c/o a brief rt flank pain that resolved 12/27/19 00:22 - Physicial Exam PE: 12/27/19 00:22 head ncat neck supple lungs cta b/l cvs [id number] abdomen no tenderness upon palpation, no rebound no cva tenderness extremities no edema neuro axox3,ambulatory 12/27/19 00:22 - Medical Decision Making 12/26/19 23:49 she has a benign abdomianl exam pt is not ,her transient abdominal pain resolved without intervention 12/27/19 00:17 Discharge - Discharge Information Problems reviewed: Yes Clinical Impression/Diagnosis: Abdominal pain Qualifiers: Abdominal location: unspecified location Qualified Code(s): R10.9 - Unspecified abdominal pain Condition: Stable Disposition: HOME - Admission No - Follow up/Referral Referrals: Connie Shore MD [Primary Care Provider] - - Patient Discharge Instructions Patient Printed Discharge Instructions: DI for Acute Abdominal Pain Additional Instructions: You came to the ED w/ ABD pain. We evaluated you and tested your blood and urine. Your results are normal, and you are cleared for discharge. Please follow up with your primary doctor within 48 hours of leaving the ED and come back with any worsening symptoms. - Post Discharge Activity
[2019-12-26 23:31] LABS: HCG,QUALITATIVE URINE Negative
[2019-12-26 23:44] LABS: ALBUMIN 3.7 g/dl (3.4-5.0); BILIRUBIN,TOTAL 0.4 mg/dL (0.2-1); BLOOD UREA NITROGEN 7.4 mg/dL (7-18); CREATININE 0.7 mg/dL (0.55-1.3); POTASSIUM 4.6 mmol/L (3.5-5.1); TOT PROT 7.9 g/dl (6.4-8.2)
== END 2019-12-26 23:55 | disposition home or self-care (01) ==
LOC: JER 21:43
DX: R10.9 Unspecified abdominal pain (principal)
CPT/HCPCS: 36415; 80053; 81003; 84703; 85025; 99283-25

== ENCOUNTER 2020-10-06 08:13 | Emergency (ER) | payer OTHER ==
[2020-10-06 08:20] VITALS: BMI 31.9
[2020-10-06 09:48] VITALS: BP 107/68; PULSE 91; TEMP 98.5
[2020-10-06 11:18] LABS: EPI CELLS >36 /uL (0-25.1); HYALINE CASTS 11 /uL (0-3.1); URINE APPEARANCE CLOUDY; URINE BACTERIA 1043 /uL (0-1359); URINE BILIRUBIN NEGATIVE (NEGATIVE); URINE COLOR YELLOW; URINE GLUCOSE (UA) NEGATIVE (NEGATIVE); URINE KETONE NEGATIVE (NEGATIVE); URINE LEUK ESTERASE TRACE (NEGATIVE); URINE NITRITE NEGATIVE (NEGATIVE); URINE PROTEIN NEGATIVE (NEGATIVE); URINE RBC 30 /uL (0-23.9); URINE WBC 242 /uL (0-25.8)
[2020-10-06 11:34] LABS: YEAST NON SEEN (NEGATIVE)
[2020-10-06] MEDS ORDERED: DEXTROSE 5%-LACTATED RINGERS 1,000 ML IV SCH (11:45)
[2020-10-06 12:12] LABS: BASO % 0.1 % (0-2.0); HEMATOCRIT 33.7 % (32.4-45.2); HEMOGLOBIN 10.7 GM/dL (10.7-15.3); LYMPH % 18.1 % (8-40); MCH 27.3 pg (25.7-33.7); MCHC 31.9 g/dl (32.0-36.0); MEAN CELL VOLUME 85.5 fl (80-96); MEAN PLT VOLUME 9.4 fl (7.5-11.1); MONO % 4.5 % (3.8-10.2); NEUT % 75.3 % (42.8-82.8); PLATELET COUNT 193 10^3/uL (134-434); RBC 3.94 M/mm3 (3.60-5.2); RDW 15.2 % (11.6-15.6); WHITE BLOOD COUNT 7.4 K/mm3 (4.0-10.0)
[2020-10-06 12:31] LABS: CALCIUM 8.7 mg/dL (8.5-10.1)
[2020-10-06 12:32] LABS: BLOOD UREA NITROGEN 3.9 mg/dL (7-18)
[2020-10-06 12:35] LABS: CREATININE 0.3 mg/dL (0.55-1.3)
[2020-10-06 12:37] LABS: BILIRUBIN,TOTAL 0.2 mg/dL (0.2-1); TOT PROT 6.4 g/dl (6.4-8.2)
== END 2020-10-06 13:45 | disposition home or self-care (01) ==
LOC: JER 08:13
PROC: 3E0337Z Introduction of Electrolytic and Water Balance Substance into Peripheral Vein, Percutaneous Approach (ICD-10-PCS; principal; 2020-10-06)
DX: O26.892 Other specified pregnancy related conditions, second trimester (principal); R20.9 Unspecified disturbances of skin sensation; Z3A.22 22 weeks gestation of pregnancy
CPT/HCPCS: 36415; 76775-TC; 80053; 81003; 85025; 87086; 99285-25

== ENCOUNTER 2021-02-16 21:25 | Emergency (ER) | payer OTHER ==
[2021-02-16 21:37] VITALS: BP 112/71; PULSE 75; TEMP 97; BMI 33.2
[2021-02-16 22:19] LABS: EPI CELLS 20 /uL (0-25.1); HYALINE CASTS 7 /uL (0-3.1); URINE APPEARANCE CLOUDY; URINE BACTERIA 896 /uL (0-1359); URINE BILIRUBIN NEGATIVE (NEGATIVE); URINE COLOR DK YELLOW; URINE GLUCOSE (UA) NEGATIVE (NEGATIVE); URINE KETONE NEGATIVE (NEGATIVE); URINE LEUK ESTERASE 3+ (NEGATIVE); URINE NITRITE NEGATIVE (NEGATIVE); URINE PROTEIN 1+ (NEGATIVE); URINE WBC 512 /uL (0-25.8)
[2021-02-16 23:45] LABS: URINE RBC 283 /uL (0-23.9)
== END 2021-02-16 23:28 | disposition home or self-care (01) ==
LOC: JER 21:25
DX: N30.00 Acute cystitis without hematuria (principal)
CPT/HCPCS: 74176-TC; 81003; 87086; 99285-25

== ENCOUNTER 2021-03-26 01:04 | Day surgery (SDC) | payer OTHER ==
[2021-03-26] MEDS ORDERED: LIDOCAINE 5% TOPICAL PATCH TP ONE (01:42)
[2021-03-26] MEDS ORDERED: ACETAMINOPHEN 500 MG TABLET (FP) PO ONE (01:42)
[2021-03-26] MEDS ORDERED: ONDANSETRON 4 MG TABLET PO ONE (01:42)
[2021-03-26] MEDS ORDERED: ACETAMINOPHEN 325 MG TABLET (FP) ONE (03:21)
[2021-03-26] MEDS ORDERED: ONDANSETRON *ODT* 4 MG TABLET ONE (03:22)
[2021-03-26] MEDS ORDERED: LIDOCAINE 5% TOPICAL PATCH ONE (03:22)
[2021-03-26 03:44] LABS: CALCIUM 9.3 mg/dL (8.5-10.1)
[2021-03-26 03:45] LABS: ALBUMIN 3.7 g/dl (3.4-5.0); BLOOD UREA NITROGEN 12.3 mg/dL (7-18)
[2021-03-26 03:47] LABS: CREATININE 0.8 mg/dL (0.55-1.3)
[2021-03-26 03:49] LABS: TOT PROT 7.9 g/dl (6.4-8.2)
[2021-03-26 04:36] LABS: BASO % 0.2 % (0-2.0); EOS % 0.8 % (0-4.5); HEMATOCRIT 39.5 % (32.4-45.2); MCHC 32.8 g/dl (32.0-36.0); MEAN CELL VOLUME 85.3 fl (80-96); MEAN PLT VOLUME 9.3 fl (7.5-11.1); MONO % 2.9 % (3.8-10.2); NEUT % 84.1 % (42.8-82.8); PLATELET COUNT 242 10^3/uL (134-434); RBC 4.63 M/mm3 (3.60-5.2); RDW 14.1 % (11.6-15.6); WHITE BLOOD COUNT 10.7 K/mm3 (4.0-10.0)
[2021-03-26] MEDS ORDERED: PIPERACILLIN/TAZOB 3.375 GM 3.375 GM in DEXTROSE 5%-WATER - 50 ML IVPB ONE (04:59)
[2021-03-26] MEDS ORDERED: SODIUM CHLORIDE 0.9% 500 ML INFUS.BAG IV ONE (05:00)
[2021-03-26 05:30] LABS: BILIRUBIN,TOTAL 0.9 mg/dL (0.2-1)
[2021-03-26] MEDS ORDERED: PIPERACILLIN/TAZOB 3.375 GM 3.375 GM/50 ML BAG IVPB ONE (06:23)
[2021-03-26] MEDS: SODIUM CHLORIDE 1,000 ML IV SCH ×2 (10:01→21:30)
[2021-03-26 13:29] LABS: BASO % 0.2 % (0-2.0); HEMATOCRIT 36.7 % (32.4-45.2); HEMOGLOBIN 11.8 GM/dL (10.7-15.3); LYMPH % 36.3 % (8-40); MCH 27.5 pg (25.7-33.7); MCHC 32.1 g/dl (32.0-36.0); MEAN CELL VOLUME 85.8 fl (80-96); MEAN PLT VOLUME 8.6 fl (7.5-11.1); NEUT % 53.5 % (42.8-82.8); PLATELET COUNT 215 10^3/uL (134-434); RBC 4.27 M/mm3 (3.60-5.2); WHITE BLOOD COUNT 5.5 K/mm3 (4.0-10.0)
[2021-03-26 13:56] LABS: ALBUMIN 3.2 g/dl (3.4-5.0)
[2021-03-26 13:59] LABS: BILIRUBIN,DIRECT 0.3 mg/dL (0.0-0.2)
[2021-03-26] MEDS ORDERED: LIDOCAINE PATCH REMOVAL MC ONE (14:00)
[2021-03-26 14:01] LABS: BILIRUBIN,TOTAL 0.8 mg/dL (0.2-1); TOT PROT 6.8 g/dl (6.4-8.2)
[2021-03-26] MEDS ORDERED: CEFTRIAXONE 1 GM/50 ML BAG ONE (14:30)
[2021-03-26] MEDS: CEFTRIAXONE 1 GM in DEXTROSE 5%-WATER - 50 ML IVPB SCH (14:36)
[2021-03-26 22:15] LABS: PH,URINE 5.5 (5.0-8.0); URINE APPEARANCE CLOUDY; URINE BILIRUBIN NEGATIVE (NEGATIVE); URINE COLOR YELLOW; URINE GLUCOSE (UA) NEGATIVE (NEGATIVE); URINE KETONE 1+ (NEGATIVE); URINE LEUK ESTERASE NEGATIVE (NEGATIVE); URINE NITRITE NEGATIVE (NEGATIVE); URINE PROTEIN NEGATIVE (NEGATIVE)
[2021-03-26 23:02] VITALS: BMI 29.4
[2021-03-27] MEDS ORDERED: BUPIVACAINE HCL/PF 0.5% (5MG/ML) 10 ML VIAL IJ ONE
[2021-03-27] MEDS ORDERED: cefTRIAXone SODIUM 1 GM VIAL ONE (09:11)
[2021-03-27] MEDS ORDERED: DEXTROSE 5%-WATER - 50 ML IVPB ONE (09:11)
[2021-03-27 09:56] LABS: CREATININE 0.6 mg/dL (0.55-1.3)
[2021-03-27 09:57] LABS: BLOOD UREA NITROGEN 8.2 mg/dL (7-18); CALCIUM 8.5 mg/dL (8.5-10.1)
[2021-03-27 09:58] LABS: ALBUMIN 2.8 g/dl (3.4-5.0); BILIRUBIN,TOTAL 0.6 mg/dL (0.2-1); TOT PROT 6.1 g/dl (6.4-8.2)
[2021-03-27 10:01] LABS: PHOSPHOROUS 3.7 mg/dL (2.5-4.9)
[2021-03-27 10:20] LABS: BASO % 0.2 % (0-2.0); HEMATOCRIT 34.8 % (32.4-45.2); HEMOGLOBIN 11.2 GM/dL (10.7-15.3); LYMPH % 44.5 % (8-40); MCH 27.7 pg (25.7-33.7); MCHC 32.2 g/dl (32.0-36.0); MEAN CELL VOLUME 85.9 fl (80-96); MEAN PLT VOLUME 9.2 fl (7.5-11.1); MONO % 7.4 % (3.8-10.2); NEUT % 41.9 % (42.8-82.8); PLATELET COUNT 210 10^3/uL (134-434); RBC 4.05 M/mm3 (3.60-5.2); RDW 14.2 % (11.6-15.6); WHITE BLOOD COUNT 4.7 K/mm3 (4.0-10.0)
[2021-03-27] MEDS: CEFTRIAXONE 1 GM in DEXTROSE 5%-WATER - 50 ML IVPB SCH (11:09)
[2021-03-27] MEDS: SODIUM CHLORIDE 1,000 ML IV SCH ×2 (11:11→18:31)
[2021-03-27] MEDS ORDERED: FLU VACC QS2021-22(6MOS UP)/PF 60 MCG/0.5 ML SYRINGE IM ONE (12:00)
[2021-03-27] MEDS ORDERED: BUPIVACAINE HCL/PF 0.5% (5MG/ML) 10 ML VIAL ONE (13:42)
[2021-03-27] MEDS ORDERED: PROPOFOL 20 ML ONE (13:57)
[2021-03-27] MEDS ORDERED: ROCURONIUM BROMIDE 100 MG/10 ML VIAL ONE (13:57)
[2021-03-27] MEDS ORDERED: MIDAZOLAM HCL 2 MG/2 ML SINGLE DOSE VIAL ONE (13:57)
[2021-03-27] MEDS ORDERED: LIDOCAINE HCL/PF 2% SDV 5ML VIAL ONE (13:57)
[2021-03-27] MEDS ORDERED: IBUPROFEN 800 MG/8 ML IJ IVPB PRN ×2 (14:09→16:20)
[2021-03-27] MEDS ORDERED: ONDANSETRON 4 MG/2 ML VIAL IVPUSH PRN ×2 (14:09→16:20)
[2021-03-27] MEDS ORDERED: ONDANSETRON 4 MG/2 ML VIAL ONE (14:28)
[2021-03-27] MEDS ORDERED: DEXAMETHASONE SOD PHOSPHATE 4 MG/1 ML VIAL ONE (14:28)
[2021-03-27] MEDS ORDERED: GLYCOPYRROLATE 0.2 MG/1 ML VIAL ONE ×2 (15:05→15:07)
[2021-03-27] MEDS ORDERED: NEOSTIGMINE METHYLSULFATE 0.5 MG/ML - 10 ML MDV ONE (15:05)
[2021-03-27] MEDS ORDERED: oxyCODONE HCL 5 MG TABLET PO PRN (16:12)
[2021-03-27] MEDS ORDERED: KETOROLAC TROMETHAMINE 30 MG/1 ML VIAL ONE (16:23)
[2021-03-27] MEDS ORDERED: ACETAMINOPHEN INJECTION 100 ML IVPB ONE (16:24)
[2021-03-27] MEDS ORDERED: KETOROLAC TROMETHAMINE 15 MG/ML VIAL IVPUSH PRN (16:28)
[2021-03-27] MEDS ORDERED: ACETAMINOPHEN 1000 MG/100 ML BAG IVPB PRN (16:29)
[2021-03-27] MEDS ORDERED: KETOROLAC TROMETHAMINE 30 MG/1 ML VIAL IVPUSH PRN (17:42)
[2021-03-27] MEDS: oxyCODONE HCL 5 MG TABLET PO PRN ×2 (18:22→23:23)
[2021-03-28] MEDS ORDERED: morphine SULFATE 4 MG/ML VIAL IVPUSH ONE (01:07)
[2021-03-28] MEDS: SODIUM CHLORIDE 1,000 ML IV SCH (02:55)
[2021-03-28] MEDS: oxyCODONE HCL 5 MG TABLET PO PRN ×2 (05:49→09:56)
[2021-03-28] MEDS ORDERED: ACETAMINOPHEN 1000 MG/100 ML BAG IVPB PRN (08:50)
[2021-03-28 09:53] LABS: BASO % 0.2 % (0-2.0); HEMATOCRIT 35.1 % (32.4-45.2); HEMOGLOBIN 11.2 GM/dL (10.7-15.3); MCH 27.5 pg (25.7-33.7); MEAN CELL VOLUME 85.9 fl (80-96); MEAN PLT VOLUME 8.8 fl (7.5-11.1); MONO % 6.3 % (3.8-10.2); NEUT % 63.5 % (42.8-82.8); PLATELET COUNT 220 10^3/uL (134-434); RBC 4.09 M/mm3 (3.60-5.2); RDW 14.1 % (11.6-15.6); WHITE BLOOD COUNT 7.8 K/mm3 (4.0-10.0)
[2021-03-28] MEDS ORDERED: KETOROLAC TROMETHAMINE 30 MG/1 ML VIAL IVPUSH SCH (10:00)
[2021-03-28 10:18] LABS: CALCIUM 8.6 mg/dL (8.5-10.1)
[2021-03-28 10:19] LABS: ALBUMIN 2.8 g/dl (3.4-5.0); BLOOD UREA NITROGEN 7.6 mg/dL (7-18)
[2021-03-28 10:22] LABS: CREATININE 0.5 mg/dL (0.55-1.3); PHOSPHOROUS 3.4 mg/dL (2.5-4.9)
[2021-03-28 10:23] LABS: BILIRUBIN,TOTAL 0.5 mg/dL (0.2-1)
[2021-03-28 10:24] LABS: TOT PROT 6.3 g/dl (6.4-8.2)
[2021-03-28 15:15] VITALS: BP 122/71; PULSE 60; TEMP 98.2
[2021-03-28] MEDS ORDERED: FLU VACC QS2021-22(6MOS UP)/PF 60 MCG/0.5 ML SYRINGE IM ONE (15:15)
== END 2021-03-28 15:45 | disposition home or self-care (01) ==
LOC: JER 01:04 → UNDOADMIN 03:15 → JERBED 03:15 → SUATTDRO 15:15 → JASUSAT 15:15 → JERBED 18:59 → J5S 18:59 → JASUSAT 03-28 15:45
PROVIDERS: ATTEND Internal Medicine
PROC: 0WQF0ZZ Repair Abdominal Wall, Open Approach (ICD-10-PCS; principal; 2021-03-26)
PROC: 0FT44ZZ Resection of Gallbladder, Percutaneous Endoscopic Approach (ICD-10-PCS; 2021-03-26)
DX: K80.10 Calculus of gallbladder with chronic cholecystitis without obstruction (principal); K42.9 Umbilical hernia without obstruction or gangrene
CPT/HCPCS: 36415; 71046-TC-FY; 74181-TC; 76705-TC; 80053; 80076; 81003; 83690; 83735; 84100; 84703; 85025; 87086; 93005; 93010; 94760; 97116-GP; 97161-GP; 99285-25; C9803; J0131; U0003; U0005

== ENCOUNTER 2021-03-30 01:21 | Emergency (ER) | payer OTHER ==
[2021-03-30 02:31] VITALS: BMI 29.4
[2021-03-30 03:25] VITALS: BP 115/73; PULSE 59; TEMP 97.9
== END 2021-03-30 03:26 | disposition home or self-care (01) ==
LOC: JER 01:21
DX: M25.511 Pain in right shoulder (principal)
CPT/HCPCS: 99281-25

== ENCOUNTER 2021-03-30 17:58 | Observation (INO) | payer OTHER ==
[2021-03-30 18:18] VITALS: BMI 29.4
[2021-03-30] MEDS ORDERED: MAG HYDROX/AL HYDROX/SIMETH 30 ML UNIT-DOSE CUP PO ONE (19:26)
[2021-03-30] MEDS ORDERED: FAMOTIDINE 20 MG/50 ML IVPB 20 MG/50 ML MG IVPB ONE ×2 (19:26→19:53)
[2021-03-30] MEDS ORDERED: morphine CARPU-JECT 4 MG/1 ML DISP.SYRIN IVPUSH ONE (19:26)
[2021-03-30] MEDS ORDERED: ONDANSETRON 4 MG/2 ML VIAL IVPUSH ONE (19:29)
[2021-03-30] MEDS ORDERED: SUCRALFATE 1 GM/10 ML UNIT DOSE CUPS PO ONE (19:30)
[2021-03-30] MEDS ORDERED: SODIUM CHLORIDE 0.9% 500 ML INFUS.BAG IV ONE (19:32)
[2021-03-30] MEDS ORDERED: SUCRALFATE 1 GM TABLET (FP) ONE (19:52)
[2021-03-30] MEDS ORDERED: morphine SULFATE 4 MG/ML VIAL ONE (19:52)
[2021-03-30] MEDS ORDERED: ONDANSETRON 4 MG/2 ML VIAL ONE (19:53)
[2021-03-30] MEDS ORDERED: MAG HYDROX/AL HYDROX/SIMETH 30 ML UNIT-DOSE CUP ONE (19:53)
[2021-03-30 20:02] LABS: BASO % 0.3 % (0-2.0); EOS % 4.1 % (0-4.5); HEMATOCRIT 36.3 % (32.4-45.2); HEMOGLOBIN 11.8 GM/dL (10.7-15.3); LYMPH % 33.7 % (8-40); MCH 27.5 pg (25.7-33.7); MCHC 32.5 g/dl (32.0-36.0); MEAN CELL VOLUME 84.7 fl (80-96); MEAN PLT VOLUME 8.4 fl (7.5-11.1); MONO % 5.5 % (3.8-10.2); NEUT % 56.4 % (42.8-82.8); PLATELET COUNT 233 10^3/uL (134-434); RBC 4.29 M/mm3 (3.60-5.2); RDW 14.2 % (11.6-15.6); WHITE BLOOD COUNT 5.2 K/mm3 (4.0-10.0)
[2021-03-30 20:09] LABS: INR 1.18 (0.83-1.09); PROTHROMBIN TIME (PATIENT) 13.8 SEC (9.7-13.0)
[2021-03-30 20:12] LABS: ACTIVATED PTT 33.2 SECONDS (25.2-36.5)
[2021-03-30 20:20] LABS: CALCIUM 8.6 mg/dL (8.5-10.1)
[2021-03-30 20:21] LABS: ALBUMIN 3.3 g/dl (3.4-5.0); BLOOD UREA NITROGEN 5.3 mg/dL (7-18)
[2021-03-30 20:24] LABS: CREATININE 0.5 mg/dL (0.55-1.3)
[2021-03-30 20:25] LABS: BILIRUBIN,TOTAL 0.6 mg/dL (0.2-1)
[2021-03-30 20:26] LABS: TOT PROT 6.9 g/dl (6.4-8.2)
[2021-03-31] MEDS ORDERED: ONDANSETRON 4 MG/2 ML VIAL IVPUSH PRN (01:59)
[2021-03-31] MEDS ORDERED: morphine CARPU-JECT 2 MG/1 ML DISP.SYRIN IVPUSH PRN (03:14)
[2021-03-31] MEDS ORDERED: morphine SULFATE 4 MG/ML VIAL IVPUSH PRN (03:14)
[2021-03-31] MEDS: DEXTROSE 5%-NORMAL SALINE 1,000 ML IV SCH ×2 (03:24→10:58)
[2021-03-31 07:56] LABS: CALCIUM 8.4 mg/dL (8.5-10.1)
[2021-03-31 07:57] LABS: BLOOD UREA NITROGEN 4.6 mg/dL (7-18)
[2021-03-31 08:00] LABS: CREATININE 0.5 mg/dL (0.55-1.3)
[2021-03-31 08:01] LABS: BILIRUBIN,TOTAL 0.4 mg/dL (0.2-1)
[2021-03-31 08:02] LABS: TOT PROT 6.2 g/dl (6.4-8.2)
[2021-03-31 08:10] LABS: HEMATOCRIT 31.9 % (32.4-45.2); HEMOGLOBIN 10.4 GM/dL (10.7-15.3); MCH 27.7 pg (25.7-33.7); MCHC 32.5 g/dl (32.0-36.0); MEAN CELL VOLUME 85.1 fl (80-96); MEAN PLT VOLUME 8.2 fl (7.5-11.1); PLATELET COUNT 207 10^3/uL (134-434); RBC 3.75 M/mm3 (3.60-5.2); RDW 14.2 % (11.6-15.6); WHITE BLOOD COUNT 5.8 K/mm3 (4.0-10.0)
[2021-03-31] MEDS: morphine SULFATE 4 MG/ML VIAL IVPUSH PRN ×2 (15:58→22:06)
[2021-04-01] MEDS: DEXTROSE 5%-NORMAL SALINE 1,000 ML IV SCH (01:26)
[2021-04-01] MEDS: POLYETHYLENE GLYCOL (HEALTHYLAX) 3350 17 GM PACKET PO SCH ×2 (04:10→09:40)
[2021-04-01] MEDS: morphine SULFATE 4 MG/ML VIAL IVPUSH PRN ×3 (04:33→17:31)
[2021-04-01] MEDS: PANTOPRAZOLE SODIUM 40 MG VIAL IVPUSH SCH (09:40)
[2021-04-01 12:29] LABS: BASO % 0.2 % (0-2.0); EOS % 7.7 % (0-4.5); HEMATOCRIT 32.8 % (32.4-45.2); HEMOGLOBIN 10.7 GM/dL (10.7-15.3); LYMPH % 26.8 % (8-40); MCH 27.6 pg (25.7-33.7); MCHC 32.5 g/dl (32.0-36.0); MEAN PLT VOLUME 8.8 fl (7.5-11.1); MONO % 6.3 % (3.8-10.2); PLATELET COUNT 221 10^3/uL (134-434); RBC 3.86 M/mm3 (3.60-5.2); WHITE BLOOD COUNT 5.7 K/mm3 (4.0-10.0)
[2021-04-01] MEDS: ACETAMINOPHEN 1000 MG/100 ML VIAL IVPB PRN ×2 (12:53→22:31)
[2021-04-01 12:58] LABS: BLOOD UREA NITROGEN 3.3 mg/dL (7-18); CALCIUM 8.5 mg/dL (8.5-10.1); MAGNESIUM 1.9 mg/dL (1.8-2.4)
[2021-04-01 13:00] LABS: BILIRUBIN,DIRECT 0.2 mg/dL (0.0-0.2)
[2021-04-01 13:01] LABS: BILIRUBIN,TOTAL 0.4 mg/dL (0.2-1); PHOSPHOROUS 3.4 mg/dL (2.5-4.9)
[2021-04-01 13:02] LABS: CREATININE 0.5 mg/dL (0.55-1.3); TOT PROT 6.2 g/dl (6.4-8.2)
[2021-04-01 13:03] LABS: BILIRUBIN,TOTAL 0.4 mg/dL (0.2-1); TOT PROT 6.3 g/dl (6.4-8.2)
[2021-04-01] MEDS ORDERED: SIMETHICONE 80 MG TAB.CHEW (FP) PO PRN (19:02)
[2021-04-01] MEDS ORDERED: POTASSIUM CHLORIDE TABS 20 MEQ TABLET.ER (FP) PO ONE (19:38)
[2021-04-02] MEDS: DEXTROSE 5%-NORMAL SALINE 1,000 ML IV SCH (09:40)
[2021-04-02] MEDS: PANTOPRAZOLE SODIUM 40 MG VIAL IVPUSH SCH (09:46)
[2021-04-02] MEDS: POLYETHYLENE GLYCOL (HEALTHYLAX) 3350 17 GM PACKET PO SCH (09:47)
[2021-04-02 09:51] LABS: BASO % 0.5 % (0-2.0); EOS % 9.1 % (0-4.5); HEMOGLOBIN 10.7 GM/dL (10.7-15.3); LYMPH % 46.5 % (8-40); MCH 27.5 pg (25.7-33.7); MCHC 32.4 g/dl (32.0-36.0); MEAN CELL VOLUME 84.8 fl (80-96); MEAN PLT VOLUME 9.1 fl (7.5-11.1); MONO % 7.2 % (3.8-10.2); NEUT % 36.7 % (42.8-82.8); PLATELET COUNT 233 10^3/uL (134-434); RBC 3.89 M/mm3 (3.60-5.2); RDW 14.5 % (11.6-15.6); WHITE BLOOD COUNT 4.1 K/mm3 (4.0-10.0)
[2021-04-02 10:11] LABS: CHLORIDE 108 mmol/L (98-107); SODIUM 143 mmol/L (136-145)
[2021-04-02 10:14] LABS: ALBUMIN 2.9 g/dl (3.4-5.0); ANION GAP 6 MMOL/L (8-16); CALCIUM 8.3 mg/dL (8.5-10.1); CO2 29 mmol/L (21-32); GLUCOSE,RANDOM 88 mg/dL (74-106)
[2021-04-02 10:17] LABS: BILIRUBIN,DIRECT 0.1 mg/dL (0.0-0.2); CREATININE 0.5 mg/dL (0.55-1.3); PHOSPHOROUS 3.8 mg/dL (2.5-4.9); SGOT/AST 36 U/L (15-37); SGPT/ALT 113 U/L (13-61)
[2021-04-02 10:19] LABS: BILIRUBIN,TOTAL 0.5 mg/dL (0.2-1); TOT PROT 6.1 g/dl (6.4-8.2)
[2021-04-02 10:20] LABS: ALK PHOS 123 U/L (45-117)
[2021-04-02 10:29] LABS: BLOOD UREA NITROGEN 2.2 mg/dL (7-18)
[2021-04-02 13:59] VITALS: BP 143/60; PULSE 87; TEMP 98.4
== END 2021-04-02 21:00 | disposition home health service (06) ==
LOC: JER 17:58 → JERBED 23:54 → INTOOBSV 23:54 → J7W 03-31 07:57
PROVIDERS: ADMIT Hospitalist; ATTEND Hospitalist
PROC: 3E0333Z Introduction of Anti-inflammatory into Peripheral Vein, Percutaneous Approach (ICD-10-PCS; principal; 2021-03-30)
PROC: 3E033GC Introduction of Other Therapeutic Substance into Peripheral Vein, Percutaneous Approach (ICD-10-PCS; 2021-03-30)
PROC: 3E033NZ Introduction of Analgesics, Hypnotics, Sedatives into Peripheral Vein, Percutaneous Approach (ICD-10-PCS; 2021-03-30)
DX: R10.11 Right upper quadrant pain (principal); R11.2 Nausea with vomiting, unspecified; M25.511 Pain in right shoulder; R74.01 Elevation of levels of liver transaminase levels; R74.8 Abnormal levels of other serum enzymes; Z90.49 Acquired absence of other specified parts of digestive tract; Z98.1 Arthrodesis status
CPT/HCPCS: 36415; 74177-TC; 74181-TC; 76705-TC; 78226-TC; 80053; 80076; 82150; 83690; 83735; 84100; 84703; 85025; 85027; 85610; 85730; 86140; 86850; 86900; 86901; 93005; 93010; 96365; 96375; 96376; 99285-25; A9537; C9803; G0378; J0131; Q9967; U0003; U0005